=== PATIENT | male | born 1950 | race Caucasian/White ===

== ENCOUNTER → 2018-02-13 | Outpatient (CLI) | payer MEDICARE, BC ==
[2018-02-13 11:12] LABS: Calcium 9.5 mg/dL (8.4-10.2); Potassium 4.3 mmol/L (3.5-5.1)
[2018-02-13 18:49] LABS: Hemoglobin A1C 7.4 % (4.0-6.0)
== END | disposition home or self-care (01) ==
LOC: LABWHC1 09:32
PROVIDERS: ATTEND Family Medicine
DX: E78.2 Mixed hyperlipidemia (principal); E55.9 Vitamin D deficiency, unspecified; R73.01 Impaired fasting glucose
CPT/HCPCS: 36415; 80048; 80061; 82306; 83036; 84450; 84460

== ENCOUNTER → 2018-05-22 | Outpatient (CLI) | payer MEDICARE, BC ==
[2018-05-22 11:28] LABS: Calcium 9.4 mg/dL (8.4-10.2); Potassium 4.4 mmol/L (3.5-5.1)
[2018-05-22 17:37] LABS: Hemoglobin A1C 6.3 % (4.0-6.0)
== END | disposition home or self-care (01) ==
LOC: LABWHC1 09:42
PROVIDERS: ATTEND Family Medicine
DX: E11.65 Type 2 diabetes mellitus with hyperglycemia (principal)
CPT/HCPCS: 36415; 80048; 80061; 83036; 84450; 84460

== ENCOUNTER → 2018-05-22 | Outpatient (CLI) | payer MEDICARE, BC ==
[2018-05-22 11:13] LABS: HCT 48.8 % (39.0-53.0); HGB 15.6 gm/dL (13.0-17.5); MCH 30.1 pg (25.0-35.0); MCV 94.2 fL (80.0-100.0); Mean Platelet Volume 7.4; Platelet Count 233 k/uL (150-450); RBC 5.18 m/uL (4.30-5.90); RDW 14.3 % (11.5-15.5); WBC 7.8 k/uL (3.8-10.6)
== END | disposition home or self-care (01) ==
LOC: LABPAT 09:57
PROVIDERS: ATTEND Internal Medicine Interventional Cardiology
DX: Z01.812 Encounter for preprocedural laboratory examination (principal)
CPT/HCPCS: 36415; 85027

== ENCOUNTER → 2018-05-30 | Day surgery (SDC) | payer MEDICARE, BC ==
[2018-05-22 15:54] VITALS: BMI 42.3
[~2018-05-30] MED LIST: ALBUTEROL NEBULIZED 2.5 MG/3 ML INHALATION SCH; ALPRAZolam 0.25 MG TAB PO PRN; ALPRAZolam 0.5 MG TAB PO PRN; ASPIRIN 325 MG TAB PO STA; ATORVASTATIN 80 MG TAB PO STA; BUDESONIDE 0.5 MG/2 ML NEBU INHALATION SCH; CHOLECALCIFEROL 1,000 UNIT TAB PO SCH; DILTIAZEM CD 180 MG CAP.ER.24H PO SCH; FORMOTEROL FUMARATE 20 MCG/2 ML NEBU INHALATION SCH; IBUPROFEN 800 MG TAB PO PRN; IOPAMIDOL-370 125ML BTL INJ ONE; IPRATROPIUM-ALBUTEROL 3 ML NEB INHALATION SCH; LIDOCAINE 1% INJ 10MG/ML (20 ML MDV) ONE; LIDOCAINE 1% INJ 10MG/ML (20 ML MDV) SQ ONE; LUTEIN PO SCH; LYCOPEN PO SCH; MIDAZOLAM 2 MG/2 ML VIAL IVP ONE; MIDAZOLAM 2 MG/2 ML VIAL ONE; MULTIVIT MIN PO SCH; NITROGLYCERIN SL TABS 0.4 MG TAB SUBLINGUAL PRN; NON-FORMULARY DRUG (Cyanocobalamin (Vitamin B-12) [Vitamin B-12] 1,000 MCG) PO SCH; PANTOPRAZOLE 40 MG TABLET PO SCH; RX INFO: IV CONTRAST WAS GIVEN 1 EACH MISC MISCELLANE PRN; SODIUM CHLORIDE 0.9% 1,000 ML IV SCH; SODIUM CHLORIDE 0.9% 1,000 ML in EMPTY BAG 1 BAG IV ONE; VERAPAMIL 2.5 MG/ML 2 ML AMP ONE; VERAPAMIL SYRINGE (5 MG/10 ML) INTRAARTER ONE; [UNRECOGNIZED DRUG - OTHER] PO SCH; fentaNYL (PF) 50 MCG/ML 2 ML AMP IVP ONE; fentaNYL (PF) 50 MCG/ML 2 ML AMP ONE
[2018-05-30 07:13] VITALS: TEMP 98.1
[2018-05-30 07:16] LABS: Glucose,Whole Blood 108 mg/dL (75-99)
--- NOTE | 2018-05-30 09:25 | CC ---
CARDIAC CATHETERIZATION REPORT Mr. Casas is a 67-year-old male with known history of persistent atrial fibrillation, history of chronic tobacco use, who has been complaining of chest discomfort, underwent a myocardial perfusion imaging that revealed inferior wall defect. In view of his findings, recommendation was made regarding cardiac catheterization. The procedure as well as risks and complications were discussed with the patient who is in full understanding and agreement. PROCEDURE: The patient was brought to lab aide in a fasting semi-sedated state after receiving fentanyl and Benadryl and achieving moderate conscious sedated state. Using Xylocaine anesthesia in the Seldinger technique, a 6-Kosovan sheath was introduced in the right radial artery. Selective right and left coronary angiography performed using 5-Kosovan 3.5 bend right and left Eber catheter. Multiple views of the coronary artery including hemiaxial views were obtained. Following that 5-Kosovan tight pigtail catheter was introduced in the left ventricle and a 30-degree LO view of the left ventricle was obtained. Following that, catheter and sheaths were removed. Hemostasis was obtained with deployment of a TR band. There was no immediate complication. Patient was returned to his room in stable condition. Of note, the patient received 5000 units of intravenous heparin as well as intra-arterial verapamil. FINDINGS: LEFT MAIN: This is a large-sized vessel bifurcating left circumflex, left anterior descending artery. Left main coronary artery has no evidence of high-grade stenosis. LEFT ANTERIOR DESCENDING ARTERY: This is a large-sized vessel reaching toward the apex with a wraparound apex segment giving rise to 3 diagonal branches. The left anterior descending artery as well as branches have no evidence of obstructive coronary artery disease. LEFT CIRCUMFLEX: This is a dominant vessel giving rise to a very proximal obtuse marginal branch. Distally bifurcating into PDA and posterolateral segment branches. The left circumflex as well as branches have no evidence of obstructive coronary artery disease. RIGHT CORONARY ARTERY: This is a small nondominant vessel that has no evidence of high- grade stenosis. LEFT VENTRICULOGRAM: Left ventriculogram was performed in 30-degree LO view and revealed normal left ventricular size with global hypokinesis and ejection fraction of 45%. There was arrhythmia induced mitral regurgitation. HEMODYNAMICS: There was no gradient across the aortic valve. The left ventricular end- diastolic pressure was 14 to 18 mmHg. CONCLUSION: 1. Normal coronary arteries. 2. Mildly impaired left ventricular systolic function. RECOMMENDATION: In view of finding anatomy, I recommend to continue medical therapy with aggressive coronary risk modification that has been initiated. Those findings and recommendation were discussed with the patient and his family who are in full understanding and agreement. DURATION OF PROCEDURE: 18 minutes. KEL / NAOMIN: [id number] /
[2018-05-30 09:42] VITALS: RESP 18
[2018-05-30 11:48] VITALS: BP 104/68; PULSE 87
== END | disposition home or self-care (01) ==
LOC: CATHCVL 06:35
PROVIDERS: ATTEND Internal Medicine Interventional Cardiology
DX: I48.1 Persistent atrial fibrillation (principal); I42.9 Cardiomyopathy, unspecified; R07.89 Other chest pain; F17.210 Nicotine dependence, cigarettes, uncomplicated; Z79.1 Long term (current) use of non-steroidal anti-inflammatories (NSAID); Z88.0 Allergy status to penicillin; Z88.7 Allergy status to serum and vaccine; Z79.899 Other long term (current) drug therapy; Z79.01 Long term (current) use of anticoagulants
CPT/HCPCS: 93458; C1894; C1769; J2250; J2001; J3010; J1644; Q9967

== ENCOUNTER → 2018-12-11 | Outpatient (CLI) | payer MEDICARE, BC ==
[2018-12-11 17:28] LABS: Albumin 3.9 g/dL (3.80-4.90); Albumin/Globulin Ratio 1.95 (1.60-3.17); Calcium 9.1 mg/dL (8.7-10.3); LDL Cholesterol,Calculated 83.6 mg/dL (0.0-131.0); Potassium 4.4 mmol/L (3.5-5.5); Total Bilirubin 2.2 mg/dL (0.2-1.2); Total Protein 5.9 g/dL (6.2-8.2); VLDL Calculation 14.4 mg/dL (5.00-40.00)
[2018-12-11 18:09] LABS: Hemoglobin A1C 6.5 % (4.0-6.0)
== END | disposition home or self-care (01) ==
LOC: LABWHC1 09:04
PROVIDERS: ATTEND Internal Medicine Interventional Cardiology
DX: E11.65 Type 2 diabetes mellitus with hyperglycemia (principal); E78.2 Mixed hyperlipidemia; R60.0 Localized edema
CPT/HCPCS: 36415; 80053; 80061; 82043; 82570; 83036; 83880

== ENCOUNTER → 2019-07-17 | Outpatient (CLI) | payer MEDICARE, BC ==
[2019-07-17 22:02] LABS: African American GFR (CKD) 88.6 (60.0-200.0); Albumin 4.2 g/dL (3.80-4.90); Albumin/Globulin Ratio 2.33 (1.60-3.17); Calcium 9.2 mg/dL (8.7-10.3); Chol/HDL Ratio 3.7; Globulin 1.8 g/dL (1.6-3.3); LDL Cholesterol,Calculated 89.6 mg/dL (0.0-131.0); Potassium 4.6 mmol/L (3.5-5.5); Total Bilirubin 1.3 mg/dL (0.3-1.2); VLDL Calculation 26.4 mg/dL (5.00-40.00)
== END | disposition home or self-care (01) ==
LOC: LABWHC1 10:33
PROVIDERS: ATTEND Nurse Practitioner Adult Health
DX: E78.2 Mixed hyperlipidemia (principal)
CPT/HCPCS: 36415; 80053; 80061

== ENCOUNTER → 2019-10-04 | Outpatient (CLI) | payer MEDICARE, BC ==
--- NOTE | 2019-10-04 18:03 | CTL ---
EXAMINATION TYPE: CT Low Dose Lung DATE OF EXAM ORDERED: 10/04/2019 HISTORY: Personal history of nicotine dependence still smoking. Lung cancer screening CT DLP: 129.[address] CTDI: 4.3 mGy Automated exposure control for dose reduction was used. SCREENING VISIT: Initial COMPARISON: None TECHNIQUE: Low dose computed tomography scan was performed through the chest at 1 mm thick sections a nd reconstructed images in the coronal plane at [address] DIAGNOSTIC QUALITY: Satisfactory FINDINGS: There is a tracheostomy tube in the midline. LUNG NODULES: Present, detailed below: There is a 0.8 cm nodule in the periphery of the lingula. Series 4 image 167. There is a 0.8 cm nodule adjacent to the dome of the diaphragm in the right middle lobe. Series 4 jh ge 174. LUNGS: COPD: Severity: Moderate Fibrosis: Severity: Moderate Lymph nodes: None Other findings: None RIGHT PLEURAL SPACE: Effusion: None Calcification: None Thickening: None Pneumothorax: None LEFT PLEURAL SPACE: Effusion: None Calcification: None Thickening: Pneumothorax: None HEART: Heart Size: Normal Coronary calcification: Mild Pericardial effusion: None OTHER FINDINGS: Upper abdomen: Normal Bony thorax: Normal Supraclavicular region: Normal Other: Ascending thoracic aorta at the level the main pulmonary artery measures 4.0 cm. The main pul monary artery at the bifurcation measures 3.9 cm. IMPRESSION: 1. Nodules within the bilateral lung bases which are nonspecific. PET/CT could be performed for addit ional evaluation. FOLLOW UP CT CHEST RECOMMENDATION: Follow up CT chest 6 months. PET/CT can be performed at this time. CT LUNG RAD: 3
== END | disposition home or self-care (01) ==
LOC: RADCTMAIN 12:01
PROVIDERS: ATTEND Internal Medicine Pulmonary Disease
DX: Z12.2 Encounter for screening for malignant neoplasm of respiratory organs (principal); R91.8 Other nonspecific abnormal finding of lung field; F17.210 Nicotine dependence, cigarettes, uncomplicated; Z88.0 Allergy status to penicillin

== ENCOUNTER → 2019-11-08 | Outpatient (CLI) | payer MEDICARE, BC ==
--- NOTE | 2019-11-10 13:44 | PE ---
Nuclear medicine PET/CT HISTORY: Solitary pulmonary nodule Patient received 11.8 mCi F-18 FDG intravenously in delayed scanning was performed from skull base to the mid thighs. Localization and attenuation correction CT scan was performed. Correlation to prior CT chest 10/04/2019 Neck and chest: There is no suspicious hypermetabolic uptake. No evident cervical, supraclavicular, m ediastinal, axillary, or hilar adenopathy. No pleural effusion. Emphysematous changes are present donavan ecially in the upper lobes. Subcentimeter subpleural nodule is likely postinflammatory, possibly beyo nd sensitivity of the PET CT in the lingula as well as in the region along the right hemidiaphragm. T here is no pleural effusion. Tracheostomy tube is in place in appropriate position. ABDOMEN: No retroperitoneal adenopathy. No evident adrenal mass. No ascites or suspicious hypermetabo lic uptake. No pelvic adenopathy. Prostate is enlarged and shows associated calcification Osseous structures show no suspicious hypermetabolic uptake. Degenerative disc changes and facet arth ropathy noted in the lumbar spine. IMPRESSION: No suspicious hypermetabolic uptake.
== END | disposition home or self-care (01) ==
LOC: RADPETMAIN 15:45
PROVIDERS: ATTEND Internal Medicine Pulmonary Disease
DX: R91.1 Solitary pulmonary nodule (principal); Z88.0 Allergy status to penicillin
CPT/HCPCS: 78815; A9552

== ENCOUNTER → 2020-04-04 | Outpatient (CLI) | payer MEDICARE, BC ==
--- NOTE | 2020-04-05 20:03 | CT ---
EXAMINATION TYPE: CT chest wo con DATE OF EXAM: 04/04/2020 COMPARISON: 10/04/2019 HISTORY: 69-year-old male multiple pulmonary nodules TECHNIQUE: Contiguous axial scanning of the chest without IV contrast. Coronal and sagittal reconstru ctions performed. CT DLP: 979.1 mGycm Automated exposure control for dose reduction was used. FINDINGS: The heart is upper limits of normal in size without pericardial effusion. Scattered mild coronary art kai calcifications. Ascending aorta ectatic at 3.6 cm. Mild atherosclerotic arch calcifications with conventional arch ve ssel branching anatomy. Scattered mediastinal lymph nodes are present, largest along the left paratracheal region measuring u p to 9 mm and AP window measuring 9 mm. Subcarinal lymph node measures 1.0 cm. Findings are unchanged . Tracheostomy cannula is present. There is flattening of the trachea and mainstem bronchi as well as s egmental bronchi to greater extent than seen on 10/04/2019. Prominent hazy dependent areas of atelectasis Moderate upper lung emphysema. Mild diffuse bronchial wall thickening. Stable 8 mm inferior lingular and 8 mm right middle lobe pulmonary nodules, or overt sagittal images 37 and 42, respectively. No pleural effusion. Tiny hiatal hernia. Visualized upper abdomen shows cholecystectomy clips and mild scattered stool. Bones: Bridging anterior endplate spondylosis throughout suggestive of DISH. IMPRESSION: 1. COPD WITH MILD TO MODERATE EMPHYSEMA. EXTENSIVE HAZY DENSITIES LIKELY PROMINENT AREAS OF DEPENDENT ATELECTASIS. 2. TRACHEAL AND BRONCHIAL NARROWING TO A GREATER EXTENT THAN SEEN ON 10/04/2019. CORRELATE FOR POSSIB LE UNDERLYING TRACHEOBRONCHOMALACIA. 3. 8 MM INFERIOR LINGULAR AND 8 MM RIGHT MIDDLE LOBE PULMONARY NODULES ARE STABLE FOR 6 MONTHS WHICH SUGGESTS A BENIGN ETIOLOGY. RECOMMEND RETURN TO ANNUAL LOW-DOSE LUNG CANCER SCREENING CT. 4. DISH THROUGHOUT THE THORACIC SPINE.
== END | disposition home or self-care (01) ==
LOC: RADCTMAIN 07:56
PROVIDERS: ATTEND Internal Medicine Pulmonary Disease
DX: J43.9 Emphysema, unspecified (principal); J98.09 Other diseases of bronchus, not elsewhere classified; R91.8 Other nonspecific abnormal finding of lung field; J96.90 Respiratory failure, unspecified, unspecified whether with hypoxia or hypercapnia
CPT/HCPCS: 71250

== ENCOUNTER → 2020-04-23 | Outpatient (CLI) | payer MEDICARE, BC ==
[2020-04-23 17:16] LABS: Albumin 4.1 g/dL (3.80-4.90); Albumin/Globulin Ratio 1.86 (1.60-3.17); Anion Gap 10.5 mmol/L (4.00-12.00); Calcium 9.4 mg/dL (8.7-10.3); Carbon Dioxide 27.5 mmol/L (21.6-31.8); Chol/HDL Ratio 3.51; Globulin 2.2 g/dL (1.6-3.3); LDL Cholesterol,Calculated 99.6 mg/dL (0.0-131.0); Non-African American GFR(CKD) 75.9 (60.0-200.0); Potassium 4.4 mmol/L (3.5-5.5); Total Bilirubin 1.5 mg/dL (0.3-1.2); Total Protein 6.3 g/dL (6.2-8.2); VLDL Calculation 18.4 mg/dL (5.00-40.00)
== END | disposition home or self-care (01) ==
LOC: LABWHC1 08:24
PROVIDERS: ATTEND Internal Medicine Interventional Cardiology
DX: E78.2 Mixed hyperlipidemia (principal)
CPT/HCPCS: 36415; 80053; 80061

== ENCOUNTER → 2020-09-28 | Outpatient (CLI) | payer MEDICARE, BC ==
--- NOTE | 2020-09-28 16:32 | CT ---
EXAMINATION TYPE: CT chest wo con DATE OF EXAM: 09/28/2020 COMPARISON: 04/04/2020 and 11/08/2019 HISTORY: 70-year-old male R91.8, multiple pulmonary nodules. TECHNIQUE: Contiguous axial scanning of the chest without IV contrast. Coronal and sagittal reconstru ctions performed. CT DLP: 905 mGycm Automated exposure control for dose reduction was used. FINDINGS: Heart upper limits of normal in size without pericardial effusion. Ectatic ascending aorta 3.7 cm an ectatic upper descending thoracic aorta 3.0 cm. Scattered nonenlarged and borderline sized lymph nodes in the mediastinum measuring up to 9 mm upper right paratracheal, 9 mm lower left paratracheal, and 1.0 cm at the right tracheobronchial angle, all unchanged from prior. No progressive lymphadenopathy is seen. Tracheostomy cannula. Moderate diffuse bronchial wall thickening. Paraseptal and centrilobular emphys edward in the upper lungs. Prominent hazy dependent atelectasis bilaterally. Small fat-containing sided Bochdalek hernia. 8 mm lateral right basilar pulmonary nodule is unchanged. 8 mm subpleural inferior lingular pulmonary nodule is unchanged. No new pulmonary nodules or masses though there is limitation due to breathing motion artifact. Tiny hiatal hernia. Low attenuation of liver suggesting fatty infiltration. Cholecystectomy clips. Bones: DISH throughout the visualized spine. IMPRESSION: 1. LARGE PATIENT BODY HABITUS WITH HYPOVENTILATORY CHANGES AND SECONDARY DIFFUSE GROUNDGLASS FELT TO RELATE TO GENERALIZED ATELECTASIS. 2. COPD WITH UPPER LUNG CENTRILOBULAR AND PARASEPTAL EMPHYSEMA. 3. 8mm RIGHT AND LEFT BASILAR PULMONARY NODULES REMAIN UNCHANGED FOR A YEAR. PATIENT SHOULD RETURN TO ANNUAL LOW-DOSE LUNG CANCER SCREENING CT.
== END | disposition home or self-care (01) ==
LOC: RADCTMAIN 14:21
PROVIDERS: ATTEND Internal Medicine Pulmonary Disease
DX: J43.2 Centrilobular emphysema (principal); J43.8 Other emphysema; R06.89 Other abnormalities of breathing; R91.8 Other nonspecific abnormal finding of lung field
CPT/HCPCS: 71250

== ENCOUNTER → 2020-11-19 | Outpatient (CLI) | payer MEDICARE, BC ==
[2020-11-19 11:09] LABS: HCT 48.6 % (39.0-53.0); HGB 16.2 gm/dL (13.0-17.5); MCH 31.4 pg (25.0-35.0); MCHC 33.3 g/dL (31.0-37.0); MCV 94.2 fL (80.0-100.0); Mean Platelet Volume 7.6; Platelet Count 200 k/uL (150-450); RBC 5.16 m/uL (4.30-5.90); RDW 13.6 % (11.5-15.5); WBC 7.6 k/uL (3.8-10.6)
[2020-11-19 15:07] LABS: Urine Creatinine 133.7 mg/dL
[2020-11-19 17:21] LABS: African American GFR (CKD) 77.9 (60.0-200.0); Albumin 4.5 g/dL (3.80-4.90); Albumin/Globulin Ratio 2.25 (1.60-3.17); Anion Gap 11.5 mmol/L (4.00-12.00); BUN/Creat Ratio 10.91 Ratio (12.00-20.00); Calcium 9.6 mg/dL (8.7-10.3); Carbon Dioxide 26.5 mmol/L (21.6-31.8); Chol/HDL Ratio 3.28; LDL Cholesterol,Calculated 76.6 mg/dL (0.0-131.0); Non-African American GFR(CKD) 67.2 (60.0-200.0); Potassium 4.6 mmol/L (3.5-5.5); Total Protein 6.5 g/dL (6.2-8.2); VLDL Calculation 28.4 mg/dL (5.00-40.00)
[2020-11-19 17:30] LABS: Prostate Specific Antigen 0.8 ng/mL (0.0-6.5); T4, Free (Free Thyroxine) 0.9 ng/dL (0.80-1.80)
[2020-11-19 17:45] LABS: Hemoglobin A1C 7.4 % (4.0-6.0)
== END | disposition home or self-care (01) ==
LOC: LABWHC1 10:29
PROVIDERS: ATTEND Internal Medicine Interventional Cardiology
DX: E11.9 Type 2 diabetes mellitus without complications (principal); E78.2 Mixed hyperlipidemia; Z12.5 Encounter for screening for malignant neoplasm of prostate
CPT/HCPCS: 36415; 80053; 80061; 82043; 82306; 82570; 83036; 84153; 84156; 84439; 84443; 85027

== ENCOUNTER → 2021-04-05 | Outpatient (CLI) | payer MEDICARE, BC ==
--- NOTE | 2021-04-05 10:43 | XR ---
EXAMINATION TYPE: XR lumbosacral spine min 4V DATE OF EXAM: 04/05/2021 CLINICAL HISTORY: Pain. Spondylosis. TECHNIQUE: Frontal, lateral, and oblique images of the lumbar spine are obtained. COMPARISON: Lumbar spine x-ray June 26, 2015 FINDINGS: There are 5 lumbar type vertebral bodies redemonstrated. The lumbar spine shows stable a nd satisfactory alignment without evidence of acute fracture or dislocation. Vertebral body heights a nd disk space heights are within normal limits. Large bridging anterior osteophytes redemonstrated. Prominent right lateral spur L2-L3 level redemonstrated. The oblique images appear within normal limi ts. Multilevel facet arthropathy and spinous processes hypertrophy redemonstrated. The overlying sof t tissue shows mild atherosclerotic calcification. IMPRESSION: As above.. Correlate for possible DISH.
== END | disposition home or self-care (01) ==
LOC: RADXRMAIN 09:50
PROVIDERS: ATTEND Physical Medicine & Rehabilitation
DX: M47.816 Spondylosis without myelopathy or radiculopathy, lumbar region (principal); M46.07 Spinal enthesopathy, lumbosacral region
CPT/HCPCS: 72110

== ENCOUNTER → 2021-04-05 | Outpatient (CLI) | payer MEDICARE, BC ==
--- NOTE | 2021-04-05 11:51 | CT ---
EXAMINATION TYPE: CT chest wo con DATE OF EXAM: 04/05/2021 COMPARISON: Chest CT September 28, 2020 and older study April 04, 2020. PET CT November 08, 2019. Low-dos e lung screening CT October 04, 2019 HISTORY: Multiple pulmonary nodules CT DLP: 902.30 mGycm. Automated Exposure Control for Dose Reduction was Utilized. TECHNIQUE: CT scan of the thorax is performed without IV contrast. FINDINGS: LUNGS: Moderate underlying emphysematous change redemonstrated. Current study is suboptimal as patien t unable to hold breath this limits evaluation for subcentimeter nodules. Fairly stable 8 mm subpleur al nodule in the lingula on axial image 32 current study. Fairly stable 16 mm right basilar nodule le ss well seen on current study due to motion artifact near image 42. No new greater than 1.0 cm nodule s. No pleural effusion or pneumothorax seen. MEDIASTINUM: Lack of IV contrast is noted to limit evaluation for mediastinal and especially hilar ad enopathy. There are no definitive new greater than 1 cm mediastinal lymph nodes. Prominent but subcen timeter lymph nodes redemonstrated. No pericardial effusion is seen. Stable cardiomegaly with mild to moderate coronary artery calcification. Tracheostomy tube redemonstrated. Stable prominent main pulm onary artery. OTHER: Cholecystectomy clips. Moderate to severe multilevel spurring in the spine. IMPRESSION: Suboptimal study today. No obvious new or enlarging nodules.
== END | disposition home or self-care (01) ==
LOC: RADCTMAIN 09:44
PROVIDERS: ATTEND Internal Medicine Pulmonary Disease
DX: R91.8 Other nonspecific abnormal finding of lung field (principal)
CPT/HCPCS: 71250

== ENCOUNTER → 2021-05-19 | Outpatient (CLI) | payer MEDICARE, BC ==
[2021-05-20 00:23] LABS: African American GFR (CKD) 77.9 (60.0-200.0); Albumin 4.1 g/dL (3.80-4.90); Albumin/Globulin Ratio 1.71 (1.60-3.17); Anion Gap 11.5 mmol/L (4.00-12.00); Calcium 9.3 mg/dL (8.7-10.3); Carbon Dioxide 26.5 mmol/L (21.6-31.8); Chol/HDL Ratio 3.08; Globulin 2.4 g/dL (1.6-3.3); Non-African American GFR(CKD) 67.2 (60.0-200.0); Potassium 4.4 mmol/L (3.5-5.5); Total Bilirubin 1.9 mg/dL (0.3-1.2); Total Protein 6.5 g/dL (6.2-8.2)
== END | disposition home or self-care (01) ==
LOC: LABWHC1 09:01
PROVIDERS: ATTEND Internal Medicine Interventional Cardiology
DX: E78.2 Mixed hyperlipidemia (principal)
CPT/HCPCS: 36415; 80053; 80061

== ENCOUNTER → 2021-11-19 | Outpatient (CLI) | payer MEDICARE, BC ==
[2021-11-19 16:07] LABS: ALT 29 U/L (10-49); Bilirubin, Conjugated 0.28 mg/dL (0.20-0.40); Total Protein 6.6 g/dL (6.2-8.2)
[2021-11-19 16:25] LABS: AST 22 U/L (14-35); African American GFR (CKD) 89.7 (60.0-200.0); Albumin 4.2 g/dL (3.8-4.9); Albumin/Globulin Ratio 1.65 (1.60-3.17); Alkaline Phosphatase 65 U/L (41-126); BUN/Creat Ratio 12.02 Ratio (12.00-20.00); Blood Urea Nitrogen 11.7 mg/dL (9.0-27.0); Calcium 9.6 mg/dL (8.7-10.3); Carbon Dioxide 26.3 mmol/L (20.0-27.5); Chloride 101 mmol/L (96-109); Chol/HDL Ratio 2.81 Ratio; Globulin 2.5 g/dL (1.6-3.3); Glucose 128 mg/dL (70-110); LDL Cholesterol,Calculated 67.5 mg/dL (0.0-131.0); Non-African American GFR(CKD) 77.4 (60.0-200.0); Phosphorus 2.5 mg/dL (2.4-5.1); Potassium 4.3 mmol/L (3.5-5.5); Sodium 138 mmol/L (135-145)
[2021-11-19 16:30] LABS: HGB 15.7 g/dL (13.0-17.0); MCH 30.8 pg (27.0-32.0); MCHC 31.4 g/dL (32.0-37.0); MCV 98.2 fL (80.0-97.0); Platelet Count 254 X 10*3/uL (140-440); RBC 5.09 X 10*6/uL (4.40-5.60); WBC 10.54 X 10*3/uL (4.50-10.00)
== END | disposition home or self-care (01) ==
LOC: LABWHC1 09:20
PROVIDERS: ATTEND Internal Medicine Interventional Cardiology
DX: Z00.00 Encounter for general adult medical examination without abnormal findings (principal); I10 Essential (primary) hypertension; E78.2 Mixed hyperlipidemia; E78.00 Pure hypercholesterolemia, unspecified; E11.21 Type 2 diabetes mellitus with diabetic nephropathy; E11.65 Type 2 diabetes mellitus with hyperglycemia; E55.9 Vitamin D deficiency, unspecified
CPT/HCPCS: 36415; 80053; 80061; 80069; 82043; 82248; 82306; 82570; 83036; 84153; 84156; 84439; 84443; 85027

== ENCOUNTER → 2022-05-24 | Outpatient (CLI) | payer MEDICARE, BC | END | disposition home or self-care (01) | LOC: RADCTMAIN 11:20 | PROVIDERS: ATTEND Internal Medicine Pulmonary Disease | DX: Z53.9 Procedure and treatment not carried out, unspecified reason (principal) ==